=== PATIENT | male | born 1980 | race Caucasian/White ===

== ENCOUNTER → 2021-10-04 14:08 | Outpatient (BNVA) | payer OTHER, SELFPAY | PROVIDERS: PCP Family Medicine; Visit Provider Clinical Nurse Specialist Adult Health | DX: R53.83 Other fatigue (principal) | CPT/HCPCS: 80053; 84443; 85025 ==

== ENCOUNTER 2022-01-04 07:15 | Day surgery (SDC) | payer OTHER, SELFPAY ==
[2022-01-02 12:35] VITALS: BMI 35.1
[2022-01-04 07:45] VITALS: BP 137/84; PULSE 61; RESP 18; TEMP 36.7; O2SAT 98
[2022-01-04] MEDS: sodium chloride 0.9% 1,000 ML 30 ML IV (08:04)
--- NOTE | 2022-01-04 08:18 | ANES.PREANE2 ---
Pre-Anesthetic Assessment Height/Weight: Height 1.75 m Weight 107.955 kg Temp Pulse Resp BP Pulse Ox O2 Del Method 98.0 F 61 18 137/84 98 01/04/22 07:45 01/04/22 07:45 01/04/22 07:45 01/04/22 07:45 01/04/22 07:45 01/04/22 07:45 Preop Diagnosis: screening Operation Date: 01/04/22 08:45 Proposed Procedures p Colonoscopy 39253,Z12.11(Not Applicable) - Yusef Moscoso DO Familial anesthetic complications: None Was Beta Joceline taken within 24 hours: N/A Was Clonidine taken within 24 hours: N/A Last intake: Intake Last Liquid Date 01/03/22 Last Liquid Time 22:00 Last Solid Date 01/02/22 Last Solid Time 21:00 Social No alcohol and No tobacco Exam alert, oriented x 3, clear to auscultation bilaterally and regular rate & rhythm Airway Submandibular: within normal limits Cervical ROM: within normal limits Mallampati: Class I Dentition: full History/ROS No significant complaints Pulmonary None reported CV/HEM Hx of bradycardia METS > 4 None reported Hepatic None reported GI Gastroesophageal Reflux Disease Metabolic None reported Musc/skel None reported Neuropsych None reported Anesthetic Plan ASA status: 1 Anesthesia: Anesthesia Evaluation, General and MAC Other: I discussed with the patient risks, goals, and benefits of MAC and general anesthesia. We discussed spectrum of MAC anesthesia including conversion to general as well as possibility of recall of intraoperative stimuli including discomfort/pain. Patient agrees to proceed with MAC. Risk of > 500 ml blood loss (7ml/kg in children): No Medications/Allergies Home Medications Medication Instructions Recorded Confirmed Last Taken Type omeprazole 40 mg capsule,delayed 40 mg PO PRN PRN Heartburn 10/20/21 01/02/22 12/22/21 History release polyethylene glycol 3350(bulk) See Rx Instructions miscellaneous 01/02/22 01/02/22 Unknown Rx (Base B,Polyethylene [id number]) .COMPLEX #3,350 grams Allergies Allergy/AdvReac Type Severity Reaction Status Date / Time No Known Allergies Allergy Verified 10/20/21 07:58 Current Medications Generic Name Dose Route Start Last Admin Trade Name Freq PRN Reason Stop Dose Admin Sodium Chloride 1,000 mls @ 30 mls/hr 01/04/22 07:45 01/04/22 08:04 Sodium Chloride 0.9% IV 01/05/22 07:44 30 mls/hr .Q24H SHERRY Administration PFSH Anesthesia Medical History Hx of pilonidal cyst 1998 Surgical History History of hydrocelectomy Right side 2009 Family History Grandfather Colorectal cancer Myocardial infarct Mother Cancer Social History Smoking and tobacco status: never smoked Data Anesthesia Cardiac Studies: No Data to Display
--- NOTE | 2022-01-04 09:02 | PM.HP ---
Providers/Chief Complaint Primary Care Provider: Rusty Hurley MD Chief Complaint: Abdominal pain History of Present Illness Jose Alfredo Xiong is a 41 year old male here for colonoscopy Medications/Allergies Home Medications Medication Instructions Recorded Confirmed Last Taken Type omeprazole 40 mg capsule,delayed 40 mg PO PRN PRN Heartburn 10/20/21 01/02/22 12/22/21 History release polyethylene glycol 3350(bulk) See Rx Instructions miscellaneous 01/02/22 01/02/22 Unknown Rx (Base B,Polyethylene [id number]) .COMPLEX #3,350 grams Allergies Allergy/AdvReac Type Severity Reaction Status Date / Time No Known Allergies Allergy Verified 10/20/21 07:58 PFSH Acute PFSH: Medical History Hx of pilonidal cyst 1998 Surgical History History of hydrocelectomy Right side 2009 Family History Grandfather Colorectal cancer Myocardial infarct Mother Cancer Social History Smoking and tobacco status: never smoked Vitals/I&O/Wt Last Vital Signs Temp 98.0 F 01/04/22 07:45 Pulse 61 01/04/22 07:45 Resp 18 01/04/22 07:45 BP 137/84 01/04/22 07:45 Pulse Ox 98 01/04/22 07:45 O2 Del Method 01/04/22 07:45 Weight last 48 hrs Weight 238 lb A&P Assessment and plan (1) Colon cancer screening: Status: Acute Plan Colonoscopy Attestations Medical Necessity Statement*: Home Coding Level of Care Code Acute Supervisor Pipe Finishing for Chg Fwd Diagnoses Colon cancer screening Z12.11
[2022-01-04 09:24] VITALS: BP 118/60; PULSE 63; RESP 16; TEMP 36.4; O2SAT 96
[2022-01-04 09:31] VITALS: BP 113/67; PULSE 60; RESP 16; O2SAT 96
--- NOTE | 2022-01-04 13:54 | ANE.PACU2 ---
Inpatient post-anesthesia follow up: Airway intact: Yes Vital signs: Temperature 97.5 F Pulse Rate 60 Respiratory Rate 16 Blood Pressure 113/67 Pulse Oximetry 96 Oxygen Delivery Me thod Room Air Oxygen Flow Rate Fraction of Inspir ed Oxygen Hydration adequate: Yes Nausea and vomiting: No Pain level: 1 Mental status: Baseline
== END 2022-01-04 09:57 | disposition home or self-care (01) ==
PROVIDERS: PCP Family Medicine; Visit Provider Surgery
PROC: 0DJD8ZZ Inspection of Lower Intestinal Tract, Via Natural or Artificial Opening Endoscopic (ICD-10-PCS; CPT 45378; principal; 2022-01-04 08:45)
DX: Z12.11 Encounter for screening for malignant neoplasm of colon (principal); K21.9 Gastro-esophageal reflux disease without esophagitis
CPT/HCPCS: 45378; J2704; J3490; J7030

== ENCOUNTER 2024-01-11 16:35 | Outpatient (CLI) | payer OTHER, SELFPAY ==
--- NOTE | 2024-01-11 16:41 | XRR_ITS ---
PROCEDURE INFORMATION: Exam: XR Cervical Spine Exam date and time: 01/11/2024 4:44 PM Age: 43 years old Clinical indication: Radicular pain (radiculopathy); Cervical region; Additional info: Left cervical radiculopathy TECHNIQUE: Imaging protocol: Radiologic exam of the cervical spine. Views: 2 or 3 views. COMPARISON: No relevant prior studies available. FINDINGS: Bones/joints: Negative for acute fracture. Normal alignment. Moderate severity multilevel disc height loss. Small posterior vertebral endplate osseous spurring changes. Soft tissues: Unremarkable. XR/XR cervical spine 3V* [id number] IMPRESSION: Negative for acute osseous pathology.
== END 2024-01-11 16:36 | disposition home or self-care (01) ==
LOC: RAD 16:36
PROVIDERS: PCP Family Medicine; Visit Provider Family Medicine
DX: M54.12 Radiculopathy, cervical region (principal); M50.30 Other cervical disc degeneration, unspecified cervical region; M25.78 Osteophyte, vertebrae
CPT/HCPCS: 72040

== ENCOUNTER → 2024-12-10 10:23 | Outpatient (BNVA) | payer OTHER, SELFPAY | PROVIDERS: PCP Family Medicine; Visit Provider Family Medicine | DX: Z51.81 Encounter for therapeutic drug level monitoring (principal); R10.13 Epigastric pain; Z13.1 Encounter for screening for diabetes mellitus | CPT/HCPCS: 80053; 83036; 83690; 85025 ==